=== PATIENT | male | born 1980 | race Caucasian/White ===

== ENCOUNTER 2017-08-05 16:48 | Emergency (ER) | payer MEDICARE ==
[~2017-08-05] VITALS: Ht 177.8 cm; Wt 94.7 kg
[2017-08-05 21:32] VITALS: BP 136/75
== END 2017-08-05 21:45 | disposition home or self-care (01) ==
LOC: EME 16:48
PROC: 0NSVXZZ Reposition Left Mandible, External Approach (ICD-10-PCS; principal; 2017-08-05)
DX: S03.00XA Dislocation of jaw, unspecified side, initial encounter (principal); X50.1XXA Overexertion from prolonged static or awkward postures, initial encounter; Z87.891 Personal history of nicotine dependence
CPT/HCPCS: 70150; 99281; 99285; J3010; J7030